=== PATIENT | male | born 1970 | race Caucasian/White ===

== ENCOUNTER → 2016-11-10 | Outpatient (CLI) | payer OTHER ==
[~2016-11-10] MED LIST: AQUAPHOR W-NAT50 GM TP; ASACOL HD800 MG PO; ATROPINE 1100 DROP/5 RIGHT EYE; BALSALAZIDE DI750 MG GT; BENADRYL25 MG PO; CIPRO500 MG PO; CLINDAMYCIN HC300 MG PO; CLOBETASOL PROP60 G1 TP; CORTEF5 M1 PO; DAILY MULTIPLE1 EACH PO; DEPAKOTE250 MG GT; DEPAKOTE250 MG PO; DEPAKOTE500 MG PO; DIPROSONE 0.05%20 ML TP; DULCOLAX10 MG PR; DUONEB 2.5-0.5 M3 ML AEROSOL; FEOSOL300 MG/5 M GT; FEOSOL325 MG PO; FEROSUL325 MG PO; FLEET ENEMA-AD118 ML PR; FLINTSTONES1 TABLET PO; HYDROCODON-ACE1 EAC7 GT; HYDROCORTISONE5 MG GT; MILK OF MAGNESI10 ML PO; PREDNISOLONE AC15 ML RIGHT EYE; PREDNISONE10 MG GT; PREDNISONE10 MG PO; PREVACID SOLUTA30 MG GT; Q-TUSSIN DM SY240 ML PO; SANTYL30 GM TP; SENNA LAXATIVE8.6 MG PO; SIMVASTATIN20 MG PO; TYLENOL REGULA325 MG PO; VANCOMYCIN125 MG/2.5 PO; VYTORIN 10/21 TABLET PO
== END ==
LOC: RAD 11-04 14:00 → EDSTATUS 14:00
PROC: 0DH67UZ Insertion of Feeding Device into Stomach, Via Natural or Artificial Opening (ICD-10-PCS; principal; 2016-11-10)
DX: Z43.1 Encounter for attention to gastrostomy (principal)
CPT/HCPCS: B4087

== ENCOUNTER 2016-12-29 04:19 | Inpatient (IN) | payer OTHER ==
[~2016-12-29] VITALS: Ht 165.1 cm; Wt 48.9 kg
[2016-12-29 05:17] LABS: CHLORIDE 105 mEq/L (99-109); SODIUM 145 mEq/L (136-147)
[2016-12-29 05:19] LABS: GLUCOSE 80 mg/dL (70-99); INTER. NORMALIZED RATIO 1.3; PROTHROMBIN TIME 13.2 (9.2-11.2)
[2016-12-29 05:20] LABS: ANION GAP 9 MEQ/L (2-14)
[2016-12-29 05:21] LABS: TOTAL BILIRUBIN 0.4 mg/dL (0.0-1.0)
[2016-12-29 05:23] LABS: ALKALINE PHOSPHATASE 55 IU/L (3-129); GFR ESTIMATE (CALCULATED) > 59 mL/min/
[2016-12-29 05:24] LABS: DIRECT BILIRUBIN 0.2 mg/dL (0.0-0.3); UREA NITROGEN (BUN) 16 mg/dL (9-23)
[2016-12-29 05:26] LABS: LIPASE 18 U/L (1.0-51.0)
[2016-12-29 05:43] LABS: HEMATOCRIT 38.7 % (38.0-50.0); MCH 33.4 PG (29.0-34.0); MCHC 32.8 G/DL (30.0-36.0); MCV 101.8 FL (86-99); MEAN PLAT.VOLUME 12.2 uM^3 (9.0-12.4); PLATELET COUNT 104 K/uL (156-360); RBC DIS.WIDTH-CV 14.4 % (11.8-14.6); RBC DIS.WIDTH-SD 54.1 % (39-53); WHITE BLOOD COUNT 6.2 K/uL (4.1-10.2)
[2016-12-29 05:53] LABS: ADD MIUA? NO; BILIRUBIN NEGATIVE; BLOOD NEGATIVE; COLOR YELLOW ((YELLOW)); GLUCOSE (STRIP) NEGATIVE; KETONES 5; LEUKOCYTES NEGATIVE; NITRITE NEGATIVE; PROTEIN (STRIP) 30; SPECIFIC GRAVITY 1.029 (1.000-1.030); UCUL ADDED? NO
[2016-12-29] MEDS ORDERED: LEVO-T25 MCG GT (07:33)
[2016-12-29] MEDS ORDERED: MULTIVITAM9 MG/15 M1 GT (07:34)
[2016-12-29] MEDS ORDERED: PREVACID SOLUTA30 MG GT (07:37)
[2016-12-29] MEDS ORDERED: VITAMIN D400 UNIT/1 GT (07:40)
[2016-12-29] MEDS ORDERED: DEPAKENE250 MG/5 M GT (07:43)
[2016-12-29 07:45] VITALS: BP 126/57
[2016-12-29] MEDS ORDERED: CORTEF10 MG GT (07:52)
[2016-12-29] MEDS ORDERED: SODIUM CHLORIDE1 G1 GT (07:54)
[2016-12-29] MEDS ORDERED: CHILDREN'S160 MG/22 GT (07:55)
[2016-12-29 11:05] VITALS: BP 127/67
[2016-12-29 15:30] VITALS: BP 124/68
[2016-12-29 16:02] LABS: HEMATOCRIT 32.9 % (38.0-50.0); MCV 103.5 FL (86-99)
[2016-12-29 19:15] VITALS: BP 108/73; BP 115/66
[2016-12-29 23:45] VITALS: BP 106/57
[2016-12-30 03:49] VITALS: BP 132/71
[2016-12-30 07:09] LABS: MCH 32.9 PG (29.0-34.0); MCHC 32.7 G/DL (30.0-36.0); MCV 100.6 FL (86-99); MEAN PLAT.VOLUME 11.4 uM^3 (9.0-12.4); PLATELET COUNT 94 K/uL (156-360); RBC DIS.WIDTH-SD 52.2 % (39-53); RED BLOOD COUNT 3.28 M/uL (4.00-5.50); WHITE BLOOD COUNT 5.2 K/uL (4.1-10.2)
[2016-12-30 07:39] LABS: ALKALINE PHOSPHATASE 34 IU/L (3-129); ANION GAP 7 MEQ/L (2-14); CHLORIDE 106 MEQ/L (99-109); EOSINOPHIL (%) 0.4 % (0-5); GFR ESTIMATE (CALCULATED) > 59 mL/min/; GLUCOSE 63 mg/dL (70-99); IMMATURE GRANULOCYTE (%) 0.4 % (0.0-0.7); INSTRUMENT ABS NEUTROPHIL CT 2.8 K/uL; LYMPHOCYTE COUNT 1.7 K/uL (1.0-2.8); MONOCYTE (%) 11.9 % (3-12); MONOCYTE COUNT 0.6 K/uL (0-0.8); NEUTROPHIL (%) 53.6 % (45-76); NEUTROPHIL COUNT 2.8 K/uL (1.8-6.4); SAMPLE HEMOLYSIS CHECK 0; SAMPLE ICTERIC CHECK 0; SAMPLE LIPEMIA CHECK 0; SODIUM 142 MEQ/L (136-147); TOTAL BILIRUBIN 0.4 MG/DL (0.0-1.0); UREA NITROGEN (BUN) 14 mg/dL (9-23)
[2016-12-30 08:24] VITALS: BP 145/71
[2016-12-30 12:55] VITALS: BP 126/58
[2016-12-30 16:30] VITALS: BP 146/76
[2016-12-30 20:18] VITALS: BP 140/68
[2016-12-31 00:22] VITALS: BP 131/60
[2016-12-31 03:43] VITALS: BP 136/64
[2016-12-31 08:10] VITALS: BP 133/66
[2016-12-31 09:56] LABS: HEMATOCRIT 33.2 % (38.0-50.0); MCH 33.1 PG (29.0-34.0); MCHC 33.7 G/DL (30.0-36.0); MCV 98.2 FL (86-99); PLATELET COUNT 107 K/uL (156-360); RBC DIS.WIDTH-CV 13.4 % (11.8-14.6); RBC DIS.WIDTH-SD 48.2 % (39-53); RED BLOOD COUNT 3.38 M/uL (4.00-5.50)
[2016-12-31 11:16] LABS: EOSINOPHIL (%) 0.2 % (0-5); IMMATURE GRANULOCYTE COUNT 0.1 K/uL; INSTRUMENT ABS NEUTROPHIL CT 2.7 K/uL; LYMPHOCYTE COUNT 1.6 K/uL (1.0-2.8); MONOCYTE (%) 11.1 % (3-12); MONOCYTE COUNT 0.6 K/uL (0-0.8); NEUTROPHIL (%) 54.4 % (45-76); NEUTROPHIL COUNT 2.7 K/uL (1.8-6.4)
[2016-12-31 11:21] LABS: ANION GAP 5 MEQ/L (2-14); CHLORIDE 103 MEQ/L (99-109); GFR ESTIMATE (CALCULATED) > 59 mL/min/; GLUCOSE 55 mg/dL (70-99); SAMPLE HEMOLYSIS CHECK 0; SAMPLE ICTERIC CHECK 0; SAMPLE LIPEMIA CHECK 0; SODIUM 139 MEQ/L (136-147); UREA NITROGEN (BUN) 10 mg/dL (9-23)
[2016-12-31 11:23] LABS: POTASSIUM 3.1 MEQ/L (3.7-5.4)
[2016-12-31 11:30] VITALS: BP 118/63
[2016-12-31 15:19] VITALS: BP 146/76
[2016-12-31 21:07] VITALS: BP 114/67
[2017-01-01 01:50] VITALS: BP 130/72
[2017-01-01 08:03] VITALS: BP 95/65
[2017-01-01 10:34] LABS: HEMATOCRIT 32.2 % (38.0-50.0); MCH 32.8 PG (29.0-34.0); MCHC 34.2 G/DL (30.0-36.0); MCV 96.1 FL (86-99); MEAN PLAT.VOLUME 10.9 uM^3 (9.0-12.4); PLATELET COUNT 122 K/uL (156-360); RBC DIS.WIDTH-CV 13.2 % (11.8-14.6); RBC DIS.WIDTH-SD 46.6 % (39-53); RED BLOOD COUNT 3.35 M/uL (4.00-5.50); WHITE BLOOD COUNT 4.2 K/uL (4.1-10.2)
[2017-01-01 10:51] VITALS: BP 125/75
[2017-01-01 10:53] LABS: ANION GAP 11 MEQ/L (2-14); CHLORIDE 109 MEQ/L (99-109); GFR ESTIMATE (CALCULATED) > 59 mL/min/; GLUCOSE 73 mg/dL (70-99); POTASSIUM 3.4 MEQ/L (3.7-5.4); SAMPLE HEMOLYSIS CHECK 0; SAMPLE ICTERIC CHECK 0; SAMPLE LIPEMIA CHECK 0; SODIUM 146 MEQ/L (136-147); UREA NITROGEN (BUN) 6 mg/dL (9-23)
[2017-01-01] MEDS ORDERED: CANASA1000 MG PR ×2 (13:18→13:48)
[2017-01-01 13:33] LABS: EOSINOPHIL (%) 0.5 % (0-5); HEMATOLOGY COMMENT 1 SMEAR COMPATIBLE; IMMATURE GRANULOCYTE (%) 4.3 % (0.0-0.7); IMMATURE GRANULOCYTE COUNT 0.2 K/uL; INSTRUMENT ABS NEUTROPHIL CT 2.1 K/uL; LYMPHOCYTE COUNT 1.4 K/uL (1.0-2.8); MONOCYTE (%) 11.8 % (3-12); MONOCYTE COUNT 0.5 K/uL (0-0.8); NEUTROPHIL (%) 48.9 % (45-76); NEUTROPHIL COUNT 2.1 K/uL (1.8-6.4)
== END 2017-01-01 17:03 | DRG 386 ==
LOC: EME → EDBD 04:19 → 2EAST 06:12 → EDOF 06:12 → 2EAST 07:42
PROVIDERS: Emergency Medicine; Hospitalist; Internal Medicine; Physician Assistant Medical
DX: K51.211 Ulcerative (chronic) proctitis with rectal bleeding (principal); E27.1 Primary adrenocortical insufficiency; R47.01 Aphasia; F79 Unspecified intellectual disabilities; G40.909 Epilepsy, unspecified, not intractable, without status epilepticus; E03.8 Other specified hypothyroidism; G80.9 Cerebral palsy, unspecified; Y95 Nosocomial condition; Z93.1 Gastrostomy status
CPT/HCPCS: 70450; 71010; 74176; 80048; 80053; 80076; 80164; 81003; 82140; 83605; 83690; 85014; 85018; 85025; 85027; 85610; 86850; 86900; 86901; 87040; 87077; 87086; 87177; 87186; 87329; 87493; 87801; 94799; 99281; 99285; J1885; J2543; J7030; J7050; S0028

== ENCOUNTER → 2017-06-02 | Outpatient (CLI) | payer OTHER ==
[~2017-06-02] MED LIST changes: +CANASA1000 MG PR; +CHILDREN'S160 MG/22 GT; +CORTEF10 MG GT; +DEPAKENE250 MG/5 M GT; +LEVO-T25 MCG GT; +MULTIVITAM9 MG/15 M1 GT; +SODIUM CHLORIDE1 G1 GT; +VITAMIN D400 UNIT/1 GT
== END ==
LOC: RAD 14:05
PROC: 0DH67UZ Insertion of Feeding Device into Stomach, Via Natural or Artificial Opening (ICD-10-PCS; principal; 2017-06-02)
DX: K94.23 Gastrostomy malfunction (principal)

== ENCOUNTER 2017-11-05 22:46 | Inpatient (IN) | payer OTHER ==
[~2017-11-05] VITALS: Ht 167.6 cm; Wt 50.5 kg
[~2017-11-05 22:46] MED LIST changes: +VITAMIN D3500 UNIT/5 GT; -VITAMIN D400 UNIT/1 GT
[2017-11-05 23:10] LABS: HEMATOCRIT 41.5 % (38.0-50.0); MCH 32.2 PG (29.0-34.0); MCHC 33.7 G/DL (30.0-36.0); MCV 95.4 FL (86-99); PLATELET COUNT 206 K/uL (156-360); RBC DIS.WIDTH-CV 14.5 % (11.8-14.6); RBC DIS.WIDTH-SD 50.2 % (39-53); RED BLOOD COUNT 4.35 M/uL (4.00-5.50); WHITE BLOOD COUNT 12.9 K/uL (4.1-10.2)
[2017-11-05 23:11] LABS: CARBON DIOXIDE (BICARBONATE) 27.7 MEQ/L (20-31)
[2017-11-05 23:21] LABS: CHLORIDE 100 mEq/L (99-109); POTASSIUM 4.3 mEq/L (3.7-5.4); SODIUM 133 mEq/L (136-147)
[2017-11-05 23:23] LABS: GLUCOSE 178 mg/dL (70-99)
[2017-11-05 23:27] LABS: CREATININE 0.7 mg/dL (0.6-1.3); GFR ESTIMATE (CALCULATED) > 59 mL/min/ (58.99-99999)
[2017-11-05 23:28] LABS: UREA NITROGEN (BUN) 14 mg/dL (9-23)
[2017-11-05 23:32] LABS: TROP-I INTERPRETATION NEGATIVE; TROPONIN-I < 0.01 ng/mL (0.0-0.30)
[2017-11-06] VITALS (18 sets, daily range): BP systolic 82–132; BP diastolic 46–115
[2017-11-06 00:32] LABS: APPEARANCE CLEAR ((CLEAR)); BILIRUBIN NEGATIVE; BLOOD NEGATIVE; COLOR AMBER ((YELLOW)); GLUCOSE (STRIP) NEGATIVE; KETONES 5; LEUKOCYTES NEGATIVE; NITRITE NEGATIVE; PROTEIN (STRIP) 30; SPECIFIC GRAVITY 1.043 (1.000-1.030); UCUL ADDED? NO; UROBILINOGEN 0.2 MG/DL (0.2-1.0)
[2017-11-06] MEDS ORDERED: MULTIVITAM9 MG/15 M1 GT (02:39)
[2017-11-06] MEDS ORDERED: VITAMIN D3500 UNIT/5 GT (02:41)
[2017-11-06] MEDS ORDERED: POTASSIUM20 MEQ/11 GT (02:42)
[2017-11-07] VITALS (21 sets, daily range): BP systolic 89–139; BP diastolic 46–78
[2017-11-07 01:14] LABS: C DIFF TOXIN POSITIVE (NEGATIVE)
[2017-11-07 16:34] LABS: CHLORIDE 110 MEQ/L (99-109); CREATININE 0.4 MG/DL (0.6-1.3); GFR ESTIMATE (CALCULATED) > 59 mL/min/ (58.99-99999); GLUCOSE 145 mg/dL (70-99); POTASSIUM 3.6 MEQ/L (3.7-5.4); UREA NITROGEN (BUN) 11 mg/dL (9-23)
[2017-11-07 16:35] LABS: SODIUM 141 MEQ/L (136-147)
[2017-11-08] VITALS (10 sets, daily range): BP systolic 101–142; BP diastolic 58–92
[2017-11-08 05:08] LABS: HEMATOCRIT 37.7 % (38.0-50.0); HEMOGLOBIN 12.4 G/DL (12.5-16.6); MCH 31.3 PG (29.0-34.0); MCHC 32.9 G/DL (30.0-36.0); MCV 95.2 FL (86-99); PLATELET COUNT 184 K/uL (156-360); RBC DIS.WIDTH-CV 14.1 % (11.8-14.6); RBC DIS.WIDTH-SD 49.2 % (39-53); RED BLOOD COUNT 3.96 M/uL (4.00-5.50); WHITE BLOOD COUNT 15.5 K/uL (4.1-10.2)
[2017-11-08 05:34] LABS: CHLORIDE 107 MEQ/L (99-109); CREATININE 0.3 MG/DL (0.6-1.3); GFR ESTIMATE (CALCULATED) > 59 mL/min/ (58.99-99999); POTASSIUM 3.4 MEQ/L (3.7-5.4); SODIUM 139 MEQ/L (136-147); UREA NITROGEN (BUN) 11 mg/dL (9-23)
[2017-11-08 05:47] LABS: GLUCOSE 87 mg/dL (70-99)
[2017-11-08 06:10] LABS: ABS NEUTROPHIL COUNT 13.2; ANISOCYTOSIS 1+; BAND NEUTROPHILS 32.5 % (0-8.0); EOSINOPHIL ABS CT 0; LYMPHOCYTES 1.7 % (15.0-45.0); MACROCYTES 1+; METAMYELOCYTES 3.5 %; MONOCYTES 5.3 % (0-9.0); MYELOCYTES 4.4 %; PLAT.SUFFICIENCY ADEQUATE; SEG.NEUTROPHILS 52.6 % (46.0-76.0)
[2017-11-08 16:40] LABS: ALBUMIN 1.7 G/DL (3.2-4.8); ALKALINE PHOSPHATASE 51 IU/L (3-129); ALT (GPT) 10 IU/L (3-49); AMYLASE 21 IU/L (1-118); AST (GOT) 17 IU/L (2-34); HIGH-SENS C-REACTIVE PROTEIN 5.13 MG/DL (0.02-0.20); LIPASE 11 U/L (1.0-51.0); TOTAL BILIRUBIN 0.2 MG/DL (0.0-1.0)
[2017-11-08 16:44] LABS: THYROTROPIN (TSH) 0.51 MIU/L (0.4-5.5)
[2017-11-09] VITALS (7 sets, daily range): BP systolic 94–128; BP diastolic 50–64
[2017-11-09 11:03] LABS: HEMATOCRIT 36.9 % (38.0-50.0); HEMOGLOBIN 12.1 G/DL (12.5-16.6); MCH 31.8 PG (29.0-34.0); MCHC 32.8 G/DL (30.0-36.0); MCV 96.9 FL (86-99); PLATELET COUNT 190 K/uL (156-360); RBC DIS.WIDTH-CV 14.5 % (11.8-14.6); RBC DIS.WIDTH-SD 51.4 % (39-53); RED BLOOD COUNT 3.81 M/uL (4.00-5.50); WHITE BLOOD COUNT 13.9 K/uL (4.1-10.2)
[2017-11-09 11:31] LABS: CHLORIDE 110 MEQ/L (99-109); CREATININE 0.4 MG/DL (0.6-1.3); GFR ESTIMATE (CALCULATED) > 59 mL/min/ (58.99-99999); POTASSIUM 3.6 MEQ/L (3.7-5.4); SODIUM 145 MEQ/L (136-147); UREA NITROGEN (BUN) 13 mg/dL (9-23)
[2017-11-09 11:32] LABS: GLUCOSE 149 mg/dL (70-99)
[2017-11-09 17:56] LABS: CREATININE 0.4 MG/DL (0.6-1.3); GFR ESTIMATE (CALCULATED) > 59 mL/min/ (58.99-99999); VANCOMYCIN, TROUGH 12.1 MCG/ML (10-20)
[2017-11-10 04:50] VITALS: BP 111/70
[2017-11-10 07:01] LABS: CHLORIDE 108 MEQ/L (99-109); CREATININE 0.3 MG/DL (0.6-1.3); GFR ESTIMATE (CALCULATED) > 59 mL/min/ (58.99-99999); GLUCOSE 115 mg/dL (70-99); POTASSIUM 3.8 MEQ/L (3.7-5.4); SODIUM 144 MEQ/L (136-147); UREA NITROGEN (BUN) 14 mg/dL (9-23)
[2017-11-10 07:35] VITALS: BP 102/74
[2017-11-10 07:42] LABS: HEMATOCRIT 41.1 % (38.0-50.0); MCH 32.8 PG (29.0-34.0); MCHC 34.1 G/DL (30.0-36.0); MCV 96.3 FL (86-99); NRBC (%) 0.2 /100 WBC (0-0); PLATELET CLUMPS PRESENT - PLATELET COUNTS APPEARS DECREASED; RBC DIS.WIDTH-CV 14.4 % (11.8-14.6); RBC DIS.WIDTH-SD 50.5 % (39-53); RED BLOOD COUNT 4.27 M/uL (4.00-5.50); WHITE BLOOD COUNT 11.2 K/uL (4.1-10.2)
[2017-11-10 07:57] LABS: PLATELET COUNT UNABLE TO REPORT K/uL (156-360)
[2017-11-10 11:39] VITALS: BP 108/72
[2017-11-10 15:40] VITALS: BP 135/58
[2017-11-10 20:00] VITALS: BP 129/76
[2017-11-10 23:31] VITALS: BP 100/67
[2017-11-11 03:38] VITALS: BP 111/67
[2017-11-11 08:00] VITALS: BP 126/52
[2017-11-11 16:00] VITALS: BP 148/70
[2017-11-12] VITALS: BP 128/80
[2017-11-12 07:30] VITALS: BP 117/69
[2017-11-12 16:29] VITALS: BP 130/64
[2017-11-13] VITALS: BP 105/67
[2017-11-13 08:01] VITALS: BP 108/58
[2017-11-13 10:39] LABS: HEMATOCRIT 35.5 % (38.0-50.0); MCH 32.1 PG (29.0-34.0); MCV 97.3 FL (86-99); PLATELET COUNT 223 K/uL (156-360); RBC DIS.WIDTH-CV 14.3 % (11.8-14.6); RED BLOOD COUNT 3.65 M/uL (4.00-5.50); WHITE BLOOD COUNT 7.8 K/uL (4.1-10.2)
[2017-11-13 10:40] LABS: HEMOGLOBIN 11.7 G/DL (12.5-16.6)
[2017-11-13 10:44] LABS: STOOL OCCULT BLD 1ST SPECIMEN POSITIVE
[2017-11-13 11:04] LABS: BASOPHIL (%) 0.1 % (0-1); EOSINOPHIL (%) 0.9 % (0-5); EOSINOPHIL COUNT 0.1 K/uL (0-0.3); IMMATURE GRANULOCYTE (%) 1.3 % (0.0-0.7); LYMPHOCYTE (%) 26.2 % (15-42); MONOCYTE (%) 12.6 % (3-12); NEUTROPHIL (%) 58.9 % (45-76); NEUTROPHIL COUNT 4.6 K/uL (1.8-6.4)
[2017-11-13 11:16] LABS: CHLORIDE 99 MEQ/L (99-109); CREATININE 0.3 MG/DL (0.6-1.3); GFR ESTIMATE (CALCULATED) > 59 mL/min/ (58.99-99999); GLUCOSE 82 mg/dL (70-99); POTASSIUM 3.2 MEQ/L (3.7-5.4); SODIUM 143 MEQ/L (136-147); UREA NITROGEN (BUN) 8 mg/dL (9-23)
[2017-11-13 23:58] VITALS: BP 92/54
[2017-11-14 06:43] LABS: BASOPHIL (%) 0.2 % (0-1); EOSINOPHIL (%) 0.5 % (0-5); HEMATOCRIT 34.6 % (38.0-50.0); HEMOGLOBIN 11.4 G/DL (12.5-16.6); IMMATURE GRANULOCYTE (%) 2.7 % (0.0-0.7); LYMPHOCYTE (%) 24.7 % (15-42); LYMPHOCYTE COUNT 1.4 K/uL (1.0-2.8); MCH 31.8 PG (29.0-34.0); MCHC 32.9 G/DL (30.0-36.0); MCV 96.6 FL (86-99); MONOCYTE (%) 13.5 % (3-12); MONOCYTE COUNT 0.8 K/uL (0-0.8); NEUTROPHIL (%) 58.4 % (45-76); NEUTROPHIL COUNT 3.2 K/uL (1.8-6.4); NRBC (%) 0.4 /100 WBC (0-0); PLATELET COUNT 218 K/uL (156-360); RBC DIS.WIDTH-SD 49.8 % (39-53); RED BLOOD COUNT 3.58 M/uL (4.00-5.50); WHITE BLOOD COUNT 5.5 K/uL (4.1-10.2)
[2017-11-14 07:05] LABS: ALBUMIN 1.6 G/DL (3.2-4.8); C-REACTIVE PROTEIN 25.4 MG/L (0-10); CHLORIDE 100 MEQ/L (99-109); CREATININE 0.3 MG/DL (0.6-1.3); GFR ESTIMATE (CALCULATED) > 59 mL/min/ (58.99-99999); GLUCOSE 89 mg/dL (70-99); PHOSPHORUS 2.8 mg/dL (2.5-4.9); POTASSIUM 3.8 MEQ/L (3.7-5.4); SODIUM 138 MEQ/L (136-147); UREA NITROGEN (BUN) 8 mg/dL (9-23)
[2017-11-14 07:31] VITALS: BP 112/55
[2017-11-14 15:48] VITALS: BP 104/60
[2017-11-15 00:12] VITALS: BP 110/62
[2017-11-15 06:56] LABS: HEMATOCRIT 36.6 % (38.0-50.0); HEMOGLOBIN 11.9 G/DL (12.5-16.6); MCH 30.9 PG (29.0-34.0); MCHC 32.5 G/DL (30.0-36.0); MCV 95.1 FL (86-99); PLATELET COUNT 266 K/uL (156-360); RBC DIS.WIDTH-CV 14.1 % (11.8-14.6); RBC DIS.WIDTH-SD 48.7 % (39-53); RED BLOOD COUNT 3.85 M/uL (4.00-5.50); WHITE BLOOD COUNT 5.6 K/uL (4.1-10.2)
[2017-11-15 07:49] VITALS: BP 192/103
[2017-11-15 08:05] VITALS: BP 118/74
[2017-11-15] MEDS ORDERED: VANCOMYCIN125 MG/2.5 GT (12:11)
[2017-11-15] MEDS ORDERED: LOPRESSOR25 MG GT (12:12)
[2017-11-15] MEDS ORDERED: CANASA1000 MG PR (12:13)
== END 2017-11-15 15:19 | DRG 871 ==
LOC: EME → EDBD 22:46 → EME 22:46 → EDOF 11-06 02:35 → 4WEST 11-06 02:35 → ENRESERV 11-06 02:37 → 4WEST 11-06 04:13 → ENRESERV 11-08 15:55 → 4WEST 11-08 15:58 → ENRESERV 11-08 16:29 → 5SOUTH 11-08 17:24
PROVIDERS: Emergency Medicine; Hospitalist; Internal Medicine; Internal Medicine Critical Care Medicine; Internal Medicine Gastroenterology; Surgery
DX: A41.89 Other specified sepsis (principal); R65.21 Severe sepsis with septic shock; A41.4 Sepsis due to anaerobes; E03.9 Hypothyroidism, unspecified; J10.1 Influenza due to other identified influenza virus with other respiratory manifestations; J10.00 Influenza due to other identified influenza virus with unspecified type of pneumonia; A04.71 Enterocolitis due to Clostridium difficile, recurrent; G40.909 Epilepsy, unspecified, not intractable, without status epilepticus; F79 Unspecified intellectual disabilities; E27.1 Primary adrenocortical insufficiency; Z93.1 Gastrostomy status; K51.20 Ulcerative (chronic) proctitis without complications; R47.01 Aphasia
CPT/HCPCS: 49440; 71045; 74018; 80048; 80069; 80076; 80202; 81003; 82150; 82272; 82565; 82803; 83605; 83690; 83880; 84145 90; 84443; 84484; 85025; 85027; 86140; 86141; 87040; 87077; 87086; 87186; 87493; 87502; 87641; 87801; 93005; 99281; 99285; J1650; J1720; J1885; J2060; J2543; J2930; J3370; J7030; J7050

== ENCOUNTER 2018-04-22 21:32 | Inpatient (IN) | payer OTHER ==
[~2018-04-22] VITALS: Ht 162.6 cm; Wt 55.4 kg
[~2018-04-22 21:32] MED LIST changes: +LOPRESSOR25 MG GT; +POTASSIUM20 MEQ/11 GT; +VANCOMYCIN125 MG/2.5 GT
[2018-04-22 22:46] LABS: HEMATOCRIT 39.8 % (38.0-50.0); HEMOGLOBIN 13.6 G/DL (12.5-16.6); MCH 33.3 PG (29.0-34.0); MCHC 34.2 G/DL (30.0-36.0); MCV 97.3 FL (86-99); PLATELET COUNT 203 K/uL (156-360); RBC DIS.WIDTH-CV 15.5 % (11.8-14.6); RBC DIS.WIDTH-SD 55.1 % (39-53); RED BLOOD COUNT 4.09 M/uL (4.00-5.50); WHITE BLOOD COUNT 21.8 K/uL (4.1-10.2)
[2018-04-22 23:06] LABS: ALBUMIN 2.3 g/dL (3.2-4.8); CHLORIDE 99 mEq/L (99-109); POTASSIUM 4.4 mEq/L (3.7-5.4); SODIUM 134 mEq/L (136-147)
[2018-04-22 23:08] LABS: GLUCOSE 121 mg/dL (70-99); TOTAL PROTEIN 4.9 g/dL (6.4-8.3)
[2018-04-22 23:10] LABS: TOTAL BILIRUBIN 0.2 mg/dL (0.0-1.0)
[2018-04-22 23:12] LABS: ALKALINE PHOSPHATASE 68 IU/L (3-129); CREATININE 0.7 mg/dL (0.6-1.3); GFR ESTIMATE (CALCULATED) > 59 mL/min/ (58.99-99999)
[2018-04-22 23:13] LABS: UREA NITROGEN (BUN) 15 mg/dL (9-23)
[2018-04-22 23:14] LABS: AST (GOT) 25 IU/L (2-34); DIRECT BILIRUBIN 0.1 mg/dL (0.0-0.3)
[2018-04-22 23:15] LABS: ALT (GPT) 10 IU/L (3-49)
[2018-04-23] VITALS: BP 98/56
[2018-04-23 01:52] LABS: ABS NEUTROPHIL COUNT 17.2; ANISOCYTOSIS 1+; ATYPICAL LYMPHOCYTE 0.9 %; BAND NEUTROPHILS 7.4 % (0-8.0); EOSINOPHIL ABS CT 0; LYMPHOCYTES 10.4 % (15.0-45.0); MACROCYTES 1+; MONOCYTES 9.9 % (0-9.0); PLAT.SUFFICIENCY ADEQUATE; SEG.NEUTROPHILS 71.4 % (46.0-76.0); TOX.VACUOLIZATION 2+; TOXIC GRANULATION 3+
[2018-04-23 02:20] LABS: C DIFF TOXIN POSITIVE (NEGATIVE)
[2018-04-23 05:24] VITALS: BP 133/58
[2018-04-23 08:03] VITALS: BP 95/58
[2018-04-23 12:00] VITALS: BP 94/41
[2018-04-23 15:26] VITALS: BP 87/53
[2018-04-23] MEDS ORDERED: VITAMIN C250 MG GT (15:32)
[2018-04-23] MEDS ORDERED: CORTEF20 M1 GT (15:32)
[2018-04-23] MEDS ORDERED: FEOSOL300 MG/5 M GT (15:33)
[2018-04-23] MEDS ORDERED: ZANTAC150 MG GT (15:34)
[2018-04-23] MEDS ORDERED: LOPRESSOR25 MG GT (15:35)
[2018-04-23 19:52] VITALS: BP 100/53
[2018-04-24] VITALS (7 sets, daily range): BP systolic 98–128; BP diastolic 56–72
[2018-04-24 05:57] LABS: BASOPHIL (%) 0.1 % (0-1); EOSINOPHIL (%) 0 % (0-5); HEMATOCRIT 33.4 % (38.0-50.0); IMMATURE GRANULOCYTE (%) 0.5 % (0.0-0.7); LYMPHOCYTE (%) 9.1 % (15-42); LYMPHOCYTE COUNT 1.2 K/uL (1.0-2.8); MCH 32.4 PG (29.0-34.0); MCHC 32.9 G/DL (30.0-36.0); MCV 98.2 FL (86-99); MONOCYTE (%) 11.3 % (3-12); MONOCYTE COUNT 1.5 K/uL (0-0.8); NEUTROPHIL COUNT 10.4 K/uL (1.8-6.4); PLATELET COUNT 165 K/uL (156-360); RBC DIS.WIDTH-CV 14.9 % (11.8-14.6); RBC DIS.WIDTH-SD 54.4 % (39-53); WHITE BLOOD COUNT 13.2 K/uL (4.1-10.2)
[2018-04-24 06:02] LABS: CHLORIDE 104 MEQ/L (99-109); CREATININE 0.5 MG/DL (0.6-1.3); GFR ESTIMATE (CALCULATED) > 59 mL/min/ (58.99-99999); GLUCOSE 177 mg/dL (70-99); POTASSIUM 3.8 MEQ/L (3.7-5.4); SODIUM 136 MEQ/L (136-147); UREA NITROGEN (BUN) 16 mg/dL (9-23)
[2018-04-24 15:16] LABS: APPEARANCE CLEAR ((CLEAR)); BILIRUBIN NEGATIVE; BLOOD NEGATIVE; GLUCOSE (STRIP) NEGATIVE; KETONES NEGATIVE; LEUKOCYTES TRACE; NITRITE NEGATIVE; PROTEIN (STRIP) NEGATIVE; SPECIFIC GRAVITY 1.032 (1.000-1.030); UROBILINOGEN 0.2 MG/DL (0.2-1.0)
[2018-04-24 15:24] LABS: BACTERIA NONE SEEN /HPF; EPITHELIAL CELLS RARE /HPF; HYALINE CASTS 0-5 /LPF; MUCUS TRACE /LPF; RED BLOOD CELLS 0-5 /HPF (0-5); UCUL ADDED? NO; WHITE BLOOD CELLS 0-5 /HPF (0-5)
[2018-04-24 15:25] LABS: COLOR DK YELLOW ((YELLOW))
[2018-04-25] VITALS (7 sets, daily range): BP systolic 102–125; BP diastolic 55–70
[2018-04-25 09:30] LABS: HEMATOCRIT 33.8 % (38.0-50.0); HEMOGLOBIN 11.4 G/DL (12.5-16.6); MCH 33.2 PG (29.0-34.0); MCHC 33.7 G/DL (30.0-36.0); MCV 98.5 FL (86-99); PLATELET COUNT 171 K/uL (156-360); RBC DIS.WIDTH-CV 14.7 % (11.8-14.6); RBC DIS.WIDTH-SD 53.9 % (39-53); RED BLOOD COUNT 3.43 M/uL (4.00-5.50); WHITE BLOOD COUNT 8.4 K/uL (4.1-10.2)
[2018-04-25 09:41] LABS: POTASSIUM 3.4 mEq/L (3.7-5.4); SODIUM 140 mEq/L (136-147)
[2018-04-25 09:43] LABS: CHLORIDE 109 mEq/L (99-109); GLUCOSE 154 mg/dL (70-99)
[2018-04-25 09:46] LABS: CREATININE 0.5 mg/dL (0.6-1.3); GFR ESTIMATE (CALCULATED) > 59 mL/min/ (58.99-99999)
[2018-04-25 09:47] LABS: UREA NITROGEN (BUN) 13 mg/dL (9-23)
[2018-04-26 03:57] VITALS: BP 100/66
[2018-04-26 06:48] LABS: HEMATOCRIT 35.9 % (38.0-50.0); HEMOGLOBIN 12.1 G/DL (12.5-16.6); MCH 33.2 PG (29.0-34.0); MCHC 33.7 G/DL (30.0-36.0); MCV 98.4 FL (86-99); PLATELET COUNT 205 K/uL (156-360); RBC DIS.WIDTH-CV 14.7 % (11.8-14.6); RBC DIS.WIDTH-SD 53.7 % (39-53); RED BLOOD COUNT 3.65 M/uL (4.00-5.50)
[2018-04-26 07:08] LABS: CHLORIDE 110 MEQ/L (99-109); CREATININE 0.4 MG/DL (0.6-1.3); GFR ESTIMATE (CALCULATED) > 59 mL/min/ (58.99-99999); GLUCOSE 143 mg/dL (70-99); POTASSIUM 3.5 MEQ/L (3.7-5.4); SODIUM 142 MEQ/L (136-147); UREA NITROGEN (BUN) 13 mg/dL (9-23)
[2018-04-26 09:01] VITALS: BP 116/74
[2018-04-26 09:23] LABS: ABS NEUTROPHIL COUNT 5.6; ANISOCYTOSIS 2+; BAND NEUTROPHILS 16.9 % (0-8.0); EOSINOPHIL ABS CT 0; LYMPHOCYTES 15.2 % (15.0-45.0); MACROCYTES 2+; METAMYELOCYTES 0.9 %; MONOCYTES 14.3 % (0-9.0); NUCLEATED RBC'S 0.9; PLAT.SUFFICIENCY ADEQUATE; POLYCHROMASIA 1+; SEG.NEUTROPHILS 52.7 % (46.0-76.0)
[2018-04-26 12:41] VITALS: BP 132/68
[2018-04-26 16:38] VITALS: BP 111/67
[2018-04-26 23:50] VITALS: BP 106/67
[2018-04-27 06:07] LABS: HEMATOCRIT 36.6 % (38.0-50.0); HEMOGLOBIN 12.2 G/DL (12.5-16.6); MCH 32.8 PG (29.0-34.0); MCHC 33.3 G/DL (30.0-36.0); MCV 98.4 FL (86-99); NRBC (%) 0.7 /100 WBC (0-0); PLATELET COUNT 213 K/uL (156-360); RBC DIS.WIDTH-CV 14.5 % (11.8-14.6); RBC DIS.WIDTH-SD 52.4 % (39-53); RED BLOOD COUNT 3.72 M/uL (4.00-5.50); WHITE BLOOD COUNT 7.6 K/uL (4.1-10.2)
[2018-04-27 06:44] LABS: CHLORIDE 107 MEQ/L (99-109); CREATININE 0.4 MG/DL (0.6-1.3); GFR ESTIMATE (CALCULATED) > 59 mL/min/ (58.99-99999); POTASSIUM 3.2 MEQ/L (3.7-5.4); SODIUM 144 MEQ/L (136-147); UREA NITROGEN (BUN) 11 mg/dL (9-23)
[2018-04-27 07:01] LABS: GLUCOSE 98 mg/dL (70-99)
[2018-04-27 08:06] VITALS: BP 124/65
[2018-04-27 17:02] VITALS: BP 111/58
[2018-04-28] VITALS: BP 110/64
[2018-04-28 07:13] VITALS: BP 120/71
[2018-04-28] MEDS ORDERED: VANCOCIN HCL125 MG PO (09:45)
== END 2018-04-28 14:18 | DRG 871 ==
LOC: EME 21:32 → 5SOUTH 04-23 03:29 → EDOF 04-23 03:29 → ENRESERV 04-23 03:33 → 5SOUTH 04-23 05:00
PROVIDERS: Emergency Medicine; Hospitalist; Internal Medicine
DX: A41.4 Sepsis due to anaerobes (principal); R65.21 Severe sepsis with septic shock; A04.71 Enterocolitis due to Clostridium difficile, recurrent; E87.1 Hypo-osmolality and hyponatremia; F72 Severe intellectual disabilities; J98.11 Atelectasis; E46 Unspecified protein-calorie malnutrition; E27.40 Unspecified adrenocortical insufficiency; K51.911 Ulcerative colitis, unspecified with rectal bleeding; K94.23 Gastrostomy malfunction; R47.01 Aphasia; E03.9 Hypothyroidism, unspecified; E88.09 Other disorders of plasma-protein metabolism, not elsewhere classified; E87.6 Hypokalemia; G40.909 Epilepsy, unspecified, not intractable, without status epilepticus; H10.9 Unspecified conjunctivitis; R13.10 Dysphagia, unspecified; M24.50 Contracture, unspecified joint; D64.9 Anemia, unspecified; R15.9 Full incontinence of feces; Z74.01 Bed confinement status; Z87.01 Personal history of pneumonia (recurrent); Z68.20 Body mass index [BMI] 20.0-20.9, adult
CPT/HCPCS: 71045; 74177; 80048; 80076; 81003; 82948; 83605; 84132; 85025; 85027; 87040; 87493; 87506; 99281; 99285; B4087; J0696; J1650; J1720; J7030; S0030